=== PATIENT | male | born 1990 | race African-American/Black ===

== ENCOUNTER 2019-04-11 15:18 | Emergency (ER) | payer OTHER ==
[~2019-04-11] VITALS: Ht 193 cm; Wt 99.3 kg
[2019-04-11 15:26] VITALS: Ht 193 cm; Wt 99.3 kg
[2019-04-11 17:51] VITALS: BP 119/88
== END 2019-04-11 17:51 | disposition home or self-care (01) ==
LOC: ED 15:18
DX: M79.644 Pain in right finger(s) (principal)